=== PATIENT | male | born 1980 | race Caucasian/White ===

== ENCOUNTER 2017-02-21 19:13 | Emergency (ER) | payer BC, OTHER ==
[2017-02-21 19:28] VITALS: BP 149/95
--- NOTE | 2017-02-21 20:21 | EDM.PDOC ---
ED HPI GENERAL MEDICAL PROBLEM - General Chief Complaint: Head Injury Stated Complaint: POSS BROKEN NOSE Time Seen by Provider: 02/21/17 19:30 Source of Information: Reports: Patient, RN Notes Reviewed History Limitations: Reports: No Limitations - History of Present Illness INITIAL COMMENTS - FREE TEXT/NARRATIVE: The patient states that he was struck on his nose and left upper cheek by a pop- fly softball that he lost in the sun around 18:45 tonight. No loss of consciousness. He is not sure if he had some epistaxis, although he did suffer a laceration to the bridge of his nose that was bleeding. He denies any visual changes. No prior nasal or facial injury or surgery. The patient does not have a PCP. Nose Pain Score (Numeric/FACES): 5 - Related Data Allergies Allergy/AdvReac Type Severity Reaction Status Date / Time No Known Allergies Allergy Verified 02/21/17 19:21 Home Meds: Home Meds Hydrocodone/Acetaminophen [[place] 5-325 Tablet] 1 - 2 tab PO Q6H PRN #12 tablet 02/21/17 [Rx] Past Medical History - Past Surgical History Musculoskeletal Surgical History: Reports: Other (See Below) (Left heel bone spur removal) Social & Family History - Tobacco Use Smoking Status *Q: Never Smoker - Alcohol Use Alcohol Use History: Yes Alcohol Use Frequency: Socially - Recreational Drug Use Recreational Drug Use: Yes Drug Use in Last 12 Months: Yes Recreational Drug Type: Reports: Marijuana/Hashish Recreational Drug Use Frequency: Socially - Living Situation & Occupation Living situation: Reports: Single, Alone Occupation: Employed (furniture delivery driver) ED ROS GENERAL - Review of Systems Review Of Systems: See Below Constitutional: Reports: No Symptoms HEENT: Reports: No Symptoms Respiratory: Reports: No Symptoms Cardiovascular: Reports: No Symptoms Endocrine: Reports: No Symptoms GI/Abdominal: Reports: No Symptoms : Reports: No Symptoms Musculoskeletal: Reports: No Symptoms Skin: Reports: No Symptoms Neurological: Reports: No Symptoms Psychiatric: Reports: No Symptoms Hematologic/Lymphatic: Reports: No Symptoms Immunologic: Reports: No Symptoms ED EXAM, HEAD INJURY - Physical Exam Exam: See Below Exam Limited By: No Limitations General Appearance: Alert, WD/WN, No Apparent Distress Head: Normocephalic, Facial Ecchymosis (under left eye), Facial Lacerations ( bridge of nose - minor), Facial Swelling (under left eye), Facial Tenderness ( under left eye) Eyes: Bilateral Eye: EOMI, Normal Inspection Ears: Normal External Exam, Normal Canal, Hearing Grossly Normal, Normal TMs Nose: Nasal Swelling, Nasal Tenderness, Nasal Ecchymosis, Dried Blood (left nare ). No: Septal Hematoma Throat/Mouth: Normal Inspection, Normal Lips, Normal Teeth, Normal Gums, Normal Oropharynx, Normal Voice, No Airway Compromise Course - Vital Signs Last Recorded V/S: Last Vital Signs Temp 36.7 C 02/21/17 19:22 Pulse 83 02/21/17 19:22 Resp 18 02/21/17 19:22 BP 149/95 H 02/21/17 19:22 Pulse Ox 96 02/21/17 19:22 - Re-Assessments/Exams Free Text/Narrative Re-Assessment/Exam: 02/21/17 19:47 The patient declined an offer for pain medication. 02/21/17 22:18 CT maxillofacial sinuses without contrast is read by Dr. Spivey as: 1. Left-sided soft tissue swelling is noted above. 2. Slightly displaced left-sided nasal bone fracture. 3. Mild chronic-appearing sinusitis. 4. Other incidental finding as noted above. No additional facial bone fractures seen. 02/21/17 22:27 CT results discussed with the patient. The patient has a nasal bone fracture, but no treatment is required today. I do not see a septal hematoma on examination. I emphasized that the patient will need to follow-up with ENT in about 1 week, not only to check for the development of a septal hematoma, but also to possibly reset his nasal bones once the swelling has decreased. The patient expresses understanding. I'm recommending the patient apply ice packs to his nose and left upper cheek is much as possible over the next 2 days, to help minimize swelling. I'm recommending he take [id number] ibuprofen, but I will also prescribe some [place], should he need it. The patient has been made aware that if he takes [place] , he cannot drive for 12 hours afterwards. Departure - Departure Time of Disposition: 22:29 Disposition: Home, Self-Care 01 Condition: Fair Clinical Impression: Nasal bone fracture - Discharge Information Prescriptions: Hydrocodone/Acetaminophen [[place] 5-325 Tablet] 1 - 2 tab PO Q6H PRN #12 tablet PRN Reason: Pain (Severe 7-10) Instructions: Nasal Fracture, [id number] Referrals: PCP,None [Primary Care Provider] - Shlomo Au MD [Physician] - Forms: ED Department Discharge Additional Instructions: You were seen in the emergency room after being struck on the face by a softball. Workup in the ER included a CT scan of your facial bones and sinuses. The CT scan finds that you have a fractured nasal bone, but no other facial fractures. We recommend you apply an ice pack to her nose and left upper cheek for 10-15 minutes, 5 times a day for the next 2 days, to help minimize swelling. We recommend you take [id number] ibuprofen 2-3 tablets (400-600 mg) every 8 hours, with food, as needed for discomfort. You may also take 1-2 tablets of [place] up to every 6 hours, as needed for pain not relieved by ibuprofen. If you take [place], do not drive or operate heavy machinery for 12 hours afterwards. [place] will likely cause constipation, so consider taking a stool softener. Follow-up with the ENT Dr. Au in approximately one week. If any other problems, please do not hesitate to return to the ER.
--- NOTE | 2017-02-21 20:52 | CT ---
CT facial bones Technique: Multiple axial sections through the facial bones were obtained. Reconstructed coronal and sagittal images were reviewed. Findings: Diffuse soft tissue swelling is seen within the left cheek and within the left side of the nose. Slightly displaced nasal bone fracture is seen on the left side. Maxillary forrest are intact. Mandible is intact. Zygomatic arches are intact. Orbital forrest are intact. Right and left globes are symmetric. Mucosal thickening is seen within portions of the ethmoid and maxillary sinuses as well as frontal sinuses which is most likely pre-existing. Chronic nasal septal deviation is noted. Impression: 1. Left-sided soft tissue swelling as noted above. 2. Slightly displaced left-sided nasal bone fracture. 3. Mild chronic-appearing sinusitis. 4. Other incidental finding as noted above. No additional facial bone fracture is seen. Diagnostic code #3
== END 2017-02-21 22:40 | disposition home or self-care (01) ==
LOC: JD.ED 19:13
DX: S02.2XXA Fracture of nasal bones, initial encounter for closed fracture (principal); W21.07XA Struck by softball, initial encounter
CPT/HCPCS: 70486; 70486-26; 99284; 99284-25